=== PATIENT | female | born 1990 | race African-American/Black ===

== ENCOUNTER 2018-03-23 21:27 | Emergency (ER) | payer MEDICAID, SELFPAY ==
[~2018-03-23] VITALS: Ht 170.2 cm; Wt 118.0 kg
[2018-03-23 22:00] VITALS: BP 163/121
[2018-03-23] MEDS ORDERED: LIDOCAINE-MPF 1%, 5ML INFIL ONE (22:00)
[2018-03-23] MEDS ORDERED: DIPH,PERTUSS(ACELL),TET VAC/PF 0.5 ML IM-VACC ONE ×2 (22:00→23:45)
[2018-03-23] MEDS ORDERED: LIDOCAINE-MPF 2% ,5ML ONE (22:47)
[2018-03-23] MEDS ORDERED: LIDOCAINE-MPF 1%, 2ML ONE ×3 (23:11→23:13)
== END 2018-03-24 00:08 | disposition home or self-care (01) ==
LOC: ED 23:59
DX: S61.012A Laceration without foreign body of left thumb without damage to nail, initial encounter (principal); W26.0XXA Contact with knife, initial encounter; F17.210 Nicotine dependence, cigarettes, uncomplicated; Y93.89 Activity, other specified; Y99.8 Other external cause status; Y92.89 Other specified places as the place of occurrence of the external cause
CPT/HCPCS: 12041; 90471; 90715; 99284